=== PATIENT | male | born 1995 | race Caucasian/White ===

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

== ENCOUNTER 2017-06-14 14:51 | Emergency (ER) | payer BC ==
[~2017-06-14] VITALS: Ht 175.3 cm; Wt 81.0 kg
[~2017-06-14 14:51] MED LIST: ANTICRE6 PO; CLR10 PO; OMEG10007 PO
[2017-06-14 14:53] VITALS: TEMP 36.7; Ht 175.3 cm; Wt 81.0 kg
--- NOTE | 2017-06-14 15:17 | DIAGNOSTIC IMAGING REPORT ---
R HAND MIN 3 VIEWS ROUTINE CLINICAL HISTORY: 22 years-old Male presenting with RIGHT, EVAL FX, punched something one week ago. TECHNIQUE: Frontal, oblique, and lateral views of the hand were obtained. COMPARISON: None. FINDINGS: Mildly impacted and apex dorsal angulated fracture of the neck of the fifth metatarsal. Overlying soft tissue swelling. No additional fracture. This is extra-articular. No degenerative change. No subcutaneous emphysema. IMPRESSION: Extra-articular mildly impacted and angulated fracture of the neck of the fifth metatarsal. Electronically signed by: Bryon Kessler M.D. 06/14/2017 3:16 PM Dictated Date/Time: 06/14/2017 3:15 PM
--- NOTE | 2017-06-14 15:24 | EMERGENCY ROOM VISIT NOTE ---
ED Visit Note First contact with patient: 14:56 CHIEF COMPLAINT: Right hand injury 9 days ago HISTORY OF PRESENT ILLNESS: Patient is a [id number] 22-year-old male who presents emergency department accompanied by his mother for evaluation of right hand pain and swelling. He admits that he punched something last week before going home for [facility] vacation. He notes pain primarily in the fourth and the fourth metacarpals and states that he is having difficulty straightening his pinky finger. He took ibuprofen and applied ice to his hands. He states that he has been working out this week and thinks that he may have reinjured it. He rates his discomfort a 4/10. REVIEW OF SYSTEMS: Review of systems as per HPI. All other systems reviewed were negative. At least 6 systems reviewed. PMH: Electronic medical records are reviewed and summarized as above/below. See Problem List. SOCIAL HISTORY: Patient is a college student from [place]. Non-smoker, social EtOH. PHYSICAL EXAM: Vital Signs: Reviewed Nurse's notes. CONSTITUTIONAL: Patient is a pleasant, well-appearing 22-year-old male who is awake and alert and in no acute distress. MUSCULOSKELETAL: Examination of the right hand notes mild dorsal soft tissue swelling. He has tenderness to palpation over the fourth and fifth metacarpals. Skin is intact, no abrasions or ecchymosis appreciated. Wrist is nontender. The skin is intact. Flexion and extension of the fingers is full and strong. EMERGENCY DEPARTMENT COURSE: X-rays of the right hand were obtained, and consistent with 1/5 metacarpal neck fracture. Patient was placed in an ulnar gutter Ortho-Glass splint. He was instructed on orthopedic follow-up for further care and management of his fracture. Differential diagnoses entertained included fracture, contusion, sprain, among others. Medication reconciliation: I attest that I have personally reviewed the patient' s current medication list. Blood pressure screening : Patient was found to have normal blood pressure on screening and does not require follow-up. R HAND MIN 3 VIEWS ROUTINE CLINICAL HISTORY: 22 years-old Male presenting with RIGHT, EVAL FX, punched something one week ago. TECHNIQUE: Frontal, oblique, and lateral views of the hand were obtained. COMPARISON: None. FINDINGS: Mildly impacted and apex dorsal angulated fracture of the neck of the fifth metatarsal. Overlying soft tissue swelling. No additional fracture. This is extra-articular. No degenerative change. No subcutaneous emphysema. IMPRESSION: Extra-articular mildly impacted and angulated fracture of the neck of the fifth metatarsal. Problem List Medical Problems: (1) Alcohol intoxication Status: Resolved (2) Fever Status: Resolved (3) Headache Status: Resolved (4) Pneumonia Status: Resolved Current/Historical Medications No Active Prescriptions or Reported Meds Allergies Coded Allergies: No Known Allergies (Unverified , 06/14/17) Vital Signs Date Time Temp Pulse Resp B/P (MAP) Pulse Ox O2 Delivery O2 Flow Rate FiO2 06/14/17 15:36 89 18 142/67 98 06/14/17 14:53 36.7 86 16 129/82 99 Departure Information Impression Primary Impression: Closed fracture of 5th metacarpal Prescriptions No Active Prescriptions or Reported Meds Referrals No Doctor, Assigned (PCP) Jameel Jeffers D.O. Patient Instructions My [facility] Additional Instructions Ibuprofen(Motrin, Advil) may be used for fever or pain. Use 600mg every six hours as needed. Take with food. Avoid using more than 2400mg in a 24 hour period. Do not use 2400mg per day for more than three consecutive days without physician direction. Prolonged inappropriate use can lead to stomach upset or ulcers. This medication can be taken if you need to drive, work, or perform activities which may be dangerous when taking narcotic pain medication. (AND/OR) Acetaminophen(Tylenol) may be used for fever or pain. Use 1000mg every six hours as needed. Avoid using more than 3000mg in a 24 hour period. This medication can be taken if you need to drive, work, or perform activities which may be dangerous when taking narcotic pain medication. Ice compresses for 20 minutes at a time four times daily for 2-3 days. Rest and elevate your injury. Do not get the splint wet. If your splint feels excessively tight, you have worsening pain, develop numbness or tingling, or your digits appear blue, loosen the la wrap. Then reapply the la wrap gently without removing the splint. If your symptoms are not quickly relieved return to the ER for re- evaluation. Continue current medications. Return to the ER immediately for any numbness, tingling, severe pain, extreme swelling in the extremity or as needed. Call [facility] on [address] morning to arrange follow up for your injury. Problem Qualifiers Primary Impression: Closed fracture of 5th metacarpal Encounter type: initial encounter Metacarpal location: neck Fracture alignment: displaced Laterality: right Qualified Codes: S62.336A - Displaced fracture of neck of fifth metacarpal bone, right hand, initial encounter for closed fracture
[2017-06-14 15:36] VITALS: BP 142/67; PULSE 89; O2SAT 98
== END 2017-06-14 15:37 | disposition home or self-care (01) ==
LOC: C.EDB 14:52 → C.EDD 15:37
DX: S62.366A Nondisplaced fracture of neck of fifth metacarpal bone, right hand, initial encounter for closed fracture (principal); W22.8XXA Striking against or struck by other objects, initial encounter